=== PATIENT | male | born 1965 | race Hispanic/Latino ===

== ENCOUNTER 2016-09-27 23:09 | Emergency (ER) | payer SELFPAY ==
[~2016-09-27] VITALS: Ht 160 cm; Wt 76.4 kg
[~2016-09-27 23:09] MED LIST: CLIN-78 PO; DXM4T PO; HYDR-4003 PO; IBUP800T28 PO; LACT1CAP67 PO
[2016-09-27 23:19] VITALS: BP 130/80; PULSE 80; RESP 18; O2SAT 99
--- NOTE | 2016-09-28 01:20 | ED.REPORT ---
HPI-Trauma Minor / Fall Date of Service Sep 28, 2016 ED Provider: Kingsley Rebollar DO Pt is an otherwise healthy 51 year old male who presents to the ED complaining of right flank pain onset 14:30 yesterday. He denies head pain, neck pain, back pain, and rib pain. Pt reports that he fell off a ladder yesterday at 14:30, resulting in his pain. Nursing Notes Stated Complaint: GROUND LEVEL FALL, BACK AND RIB PAIN Chief Complaint: Multiple Trauma/Fall Nursing Notes Reviewed: Yes Allergies: Coded Allergies: No Known Allergies (Verified Allergy, Unknown, 07/23/15) Scheduled Clindamycin (Clindamycin) 300 Mg Capsule 300 MG PO QID Dexamethasone (Dexamethasone) 4 Mg Tablet 8 MG PO DAILY Lactobacillus Combination No.4 (Probiotic) 1 Each Capsule 1 EACH PO DAILY Scheduled PRN Hydrocodone-Acetaminophen 5-325 mg (Hydrocodone-Acetaminophen 5-325 mg) 1 Each Tablet 1-2 TABLET PO Q6H PRN PRN For Pain Ibuprofen (Ibuprofen) 800 Mg Tablet 800 MG PO TID PRN PRN For Pain General Time Seen by MD: 01:20 Chief Complaint Fall (from height) Hx Obtained From: Patient Arrived By: Walk-in Onset Occurred: 9 - 12 hours ago Symptom Duration: Since onset Quality: Painful Severity: Current: Moderate Severity: Maximum: Moderate Recent Healthcare: No recent doctor visit, No recent hospitalization Similar Sx Previous: No Past Medical History Past Medical History Inguinal hernia Eye injury Past Surgical History Reports: Inguinal hernia repair Smoking History Current Every Day Smoker Social History Alcohol Use: "Social" Drug Use: THC Other Social History: Good social support, Local resident Occupation construction Ambulatory Status Independent Review of Systems Denies head pain Denies rib pain Musculoskeletal: Denies: Back pain, Neck pain Complete sys rev & neg: except as marked. Female: Reports: Flank pain (right) Physical Exam Initial Vital Signs Vital Signs (First) Date Time Temp Pulse Resp B/P Pulse Ox O2 Delivery O2 Flow Rate FiO2 09/27/16 23:19 36.3 80 18 130/80 99 Room Air Initial VS: Reviewed Head / Eyes: Atraumatic, Normocephalic Cardiovascular: Regular rate & rhythm, Heart sounds normal, Intact distal pulses Extremities: Vascular intact, Neuro intact Skin: Warm, Dry, No cyanosis Neurologic: Alert, Oriented, Nonfocal Psychiatric: Mood/affect normal, Behavior normal General/Constitutional: Awake, Alert Neck: Atraumatic, Full range of motion Respiratory / Chest: Atraumatic, Breath sounds NL, Breath sounds = bilat Tender right chest wall Abdomen: Soft Tender right kidney Back: Full range of motion Tender right CVA Interpretation & Diagnostics Lab Results Interpretation Result Diagram: 09/28/16 0245 09/28/16 0245 Test 09/28/16 02:45 White Blood Count 7.6th/mm3 (3.8-10.1) Red Blood Count 4.30mil/mm3 (4.40-5.80) Hemoglobin 13.9g/dL (13.8-17.2) Hematocrit 40.2% (41.0-50.0) Mean Corpuscular Volume 93.5fL (81-100) Mean Corpuscular Hemoglobin 32.3pg (27.0-35.0) Mean Corpuscular Hemoglobin Concent 34.6% (32.0-37.0) Red Cell Distribution Width 12.5% (12.3-15.4) Platelet Count 199bil/L (150-400) Neutrophils (%) (Auto) 77.8% (40-74) Lymphocytes (%) (Auto) 16.3% (14-46) Monocytes (%) (Auto) 5.4% (4-12) Eosinophils (%) (Auto) 0.1% (0-5) Basophils (%) (Auto) 0.1% (0-3) Sodium Level 135mEq/L (134-144) Potassium Level 4.0mEq/L (3.5-5.2) Chloride Level 100mEq/L (97-108) Carbon Dioxide Level 17mmol/L (18-29) Blood Urea Nitrogen 10mg/dL (6-24) Creatinine 0.68mg/dL (0.76-1.27) Estimat Glomerular Filtration Rate 130mL/min (>59) Glucose Level 115mg/dL (60-99) Calcium Level 8.6mg/dL (8.5-10.1) Total Bilirubin 0.4mg/dL (0.0-1.2) Aspartate Amino Transf (AST/SGOT) 29U/L (0-50) Alanine Aminotransferase (ALT/SGPT) 21U/L (0-44) Alkaline Phosphatase 61U/L (25-150) Total Protein 7.2g/dL (6.4-8.4) Albumin 4.3g/dL (3.4-5.0) Lipase 22U/L (13-60) Hold Andrews Top Tube Received (Received) X-Ray Chest Interpretation Chest Xray Interpretation: Possible right 12th rib fracture View: Portable, 1 view Interpretation / Wet Read by: Wet read ED physician CT Abd / Pelvis Interpretation Fracture of the 11th rib on the right. Signed by Dr. Robert Sheriff 09/28/16 04:11 Study type: Abdominal CT IV contrast Re-Eval/Medical Decision Source of Hx: Old records Counseled Regarding: Diagnosis, Need for follow-up, When/why to return to ED Discharge & Departure Impression: Primary Impression: Contusion, flank Encounter type: initial encounter Qualified Code: S30.1XXA - Contusion of abdominal wall, initial encounter Additional Impression: Blunt abdominal trauma Encounter type: initial encounter Qualified Code: S39.81XA - Other specified injuries of abdomen, initial encounter Disposition: Home Discharge Condition All VS Reviewed: Yes Condition: Stable Patient Instructions: Blunt Abdominal Injury (GEN), Rib Fracture (GEN) Additional Instructions: You may have a rib fracture on the right. It is difficult to say. We will treat it as if it were broken. The CAT scan of her abdomen however was reassuring. No signs of internal organ injury. He may take 1-2 Viola every 6 hours for severe pain. Take Motrin 600 mg 1 every 8 hours for moderate pain. Do not drive or drink alcohol or consume acetaminophen while taking the Viola. Set up a follow-up with YOUr primary care physician for later this week or the first part of next week. Return if YOU have any problems or any new or worrisome symptoms. Do not drive today as you have receive sedating medications. Referrals: NOPCP (PCP) Kenrick Seth MD Attestation Portions of this note were transcribed by Ofelia Bautista. I, Dr. Rebollar personally performed the history, physical exam and medical decision-making; I reviewed and confirmed the accuracy of the information in the transcribed note. Signed by : Gianfranco Neves, 09/28/16. copies to: Kingsley Méndez DO Sep 28, 2016 01:20 Ofelia Alex Sep 28, 2016 01:30 [place] Sep 28, 2016 04:16
[2016-09-28] MEDS ORDERED: HYDROmorphone 0.5 mg/0.5 mL iSecure Syringe IVPUSH PRN (02:20)
[2016-09-28 03:04] LABS: BASOPHILS % (AUTO) 0.1 % (0-3); EOSINOPHILS % (AUTO) 0.1 % (0-5); MONOCYTES % (AUTO) 5.4 % (4-12); Mean Corpuscular Hemoglobin 32.3 pg (27.0-35.0); Mean Corpuscular Volume 93.5 fL (81-100); NEUTROPHILS % (AUTO) 77.8 % (40-74); Platelet Count 199 bil/L (150-400)
[2016-09-28 04:13] VITALS: BP 108/67; PULSE 71; RESP 16; O2SAT 97
[2016-09-28 05:50] VITALS: BP 134/80; PULSE 87; RESP 16; O2SAT 97
--- NOTE | 2016-09-28 09:43 | DRSVH ---
PROCEDURE: CT ABDOMEN AND PELVIS WITH CONTRAST TRAUMA (PNL [id number]) INDICATIONS: blunt right flank and right abdominal trauma TECHNIQUE: After the administration of intravenous contrast, 5 mm thick sections acquired from the diaphragms to the symphysis. 5 mm thick coronal and sagittal reformats were acquired. Optional 10-minute delayed imaging may be performed from the kidneys to the bladder. For radiation dose reduction, the followi ng was used: automated exposure control, adjustment of mA and/or kV according to patient size. COMPARISON: None. FINDINGS: Image quality: Excellent. ABDOMEN: Lung bases: Lung bases are clear. Heart size is normal. No pericardial effusion. There is a commin uted, minimally displaced right posterior 11th rib fracture. No basal pleural effusions or pneumotho rax. Solid organs: Liver and spleen are normal in size and enhancement, without lacerations. There are mu ltiple circumscribed low density hepatic cystic lesions which likely represent simple hepatic cysts. Gallbladder is unremarkable. Biliary system is non-dilated. Pancreas enhances normally, without tra nsection. No adrenal hematomas. Both kidneys enhance normally, without hydronephrosis or laceration s. There is a nonobstructing 3 mm diameter left renal calculus. Peritoneum and bowel: No free fluid or air. Unenhanced bowel loops demonstrate normal wall thicknes s and caliber. Nodes and vessels: No retroperitoneal or mesenteric adenopathy. Aorta and inferior vena cava are no rmal in size and enhancement. There are scattered atheromatous calcifications throughout the aorta a nd iliac arteries bilaterally. Miscellaneous: No ventral hernias. PELVIS: Genitourinary: Bladder wall thickness is normal. Miscellaneous: No inguinal hernias or adenopathy. Bones: Pelvic ring and hip joints appear intact. No vertebral compression fractures. IMPRESSION: 1. Comminuted, displaced posterior right 11th rib fracture. 2. No acute intra-abdominal findings. 3. Nonobstructive left nephrolithiasis. Note: The preliminary [facility] interpretation and the final report are concordant. Dictated by: Cristine Valero M.D. on 09/28/2016 at 9:27 Approved by: Cristine Valero M.D. on 09/28/2016 at 9:42
--- NOTE | 2016-09-28 10:49 | DRSVH ---
PROCEDURE: X-RAY RIGHT RIBS INCLUDEING PA CHEST, MINUMUM THREE VIEWS ([id number]) INDICATIONS: pain TECHNIQUE: 3 views of the right ribs were acquired, along with a single view chest. COMPARISON: None. FINDINGS: Surgical changes and devices: None. Bones and chest wall: No definite fractures or dislocations. Curvilinear calcification adjacent to the right 10th lateral rib with appearance suggesting costochondral calcification. No suspicious bon y lesions. Overlying soft tissues appear unremarkable. Lungs and pleura: No pleural effusions or pneumothorax. Lungs appear clear. Mediastinum: Mediastinal contours appear normal. Heart size is normal. IMPRESSION: No displaced rib fractures seen. Of note, there is curvilinear calcification adjacent t o the right 10th lateral rib which may represent fractured mildly displaced costochondral calcificati on. Recommend correlation to point tenderness. Dictated by: Rigoberto TEJEDA Interpreted: Kong Sorensen MD on 09/28/2016 at 8:58 Approved by: Kong Sorensen M.D. on 09/28/2016 at 10:47
== END 2016-09-28 05:51 | disposition home or self-care (01) ==
LOC: SED 23:09
DX: S30.1XXA Contusion of abdominal wall, initial encounter (principal); W11.XXXA Fall on and from ladder, initial encounter; Y93.89 Activity, other specified; Y92.89 Other specified places as the place of occurrence of the external cause; Y99.8 Other external cause status; F17.200 Nicotine dependence, unspecified, uncomplicated
CPT/HCPCS: 36415; 71101; 74177; 80053; 83690; 85025; 96374; 99285; J1170; Q9967